=== PATIENT | male | born 1945 | race Caucasian/White ===

== ENCOUNTER 2020-12-19 11:41 | Inpatient (IN) ==
[2020-12-19] MEDS ORDERED: Ipratropium/Albuterol Neb 3 ML IH ONE (12:08)
[2020-12-19 12:22] LABS: Eosinophils # 0.2 K/mcL (0.0-0.6); Eosinophils % 2.4 %; Hematocrit 44.9 % (37.5-50.1); Hemoglobin 14.8 g/dL (12.9-16.9); Immature Granulocytes % 0.3 % (0-4); Lymphocytes # 0.6 K/mcL (0.6-4.6); Lymphocytes % 7.2 %; Mean Corpuscular Hemoglobin 29.3 pg (28.0-33.3); Mean Corpuscular Volume 88.9 fL (83.0-100.0); Mean Platelet Volume 11.1 fL (9.4-12.4); Monocytes # 0.7 K/mcL (0.0-1.3); Neutrophils # 6.5 K/mcL (1.6-8.9); Platelet Count 100 K/mcL (140-400); Red Blood Count 5.05 M/mcL (4.19-5.50); Red Cell Distribution Width 13.3 % (11.5-14.5); Segmented Neutrophils % 81.1 %
[2020-12-19 12:30] LABS: INR 1.1; Prothrombin Time 12.4 Seconds (9.4-12.1)
[2020-12-19 12:40] LABS: Albumin 3.9 g/dL (3.5-5.7); Bilirubin,Total 1.2 mg/dL (0.3-1.0); Globulin 3.9 g/dL (2.4-3.5); Phosphorous 2.8 mg/dL (2.7-4.5); Potassium 4.4 mEq/L (3.5-5.1); Total Protein 7.8 g/dL (6.4-8.9); Troponin I 0.03 ng/mL (< 0.04)
[2020-12-19] MEDS ORDERED: Isovue-370 500 ML BOTTLE IVP ONE (12:40)
[2020-12-19] MEDS ORDERED: 0.9 % Sodium Chloride 1,000 ML IV ONE (12:44)
[2020-12-19] MEDS ORDERED: MOM Conc 10 ML UD.LIQ PO PRN (15:57)
[2020-12-19] MEDS ORDERED: Mag Hydrox/Al Hydrox/Simeth 30 ML UDC PO PRN (15:57)
[2020-12-19] MEDS ORDERED: Ondansetron 4 MG/2 ML VIAL IVP PRN (15:57)
[2020-12-19] MEDS ORDERED: Melatonin 3 MG TABLET PO PRN (15:57)
[2020-12-19] MEDS ORDERED: Acetaminophen 325 MG TABLET PO PRN (15:57)
[2020-12-19] MEDS ORDERED: Ondansetron ODT 4 MG TAB.RAPDIS SL PRN (15:57)
[2020-12-19] MEDS ORDERED: Naloxone 0.4 MG/ML INJ IVP PRN (15:57)
[2020-12-19] MEDS ORDERED: Furosemide 40 MG/4 ML VIAL IVP ONE (16:03)
[2020-12-19] MEDS ORDERED: methylPREDNISolone 125 MG/2 ML VIAL IVP ONE (16:06)
[2020-12-19] MEDS ORDERED: Perflutren Lipid Microsphere 1.3 ML in 0.9 % Sodium Chloride 8.7 ML IVP PRN ×2 (16:10→17:38)
[2020-12-19] MEDS ORDERED: Ipratropium/Albuterol Neb 3 ML ONE (16:17)
[2020-12-19] MEDS: Ipratropium/Albuterol Neb 3 ML IH SCH ×2 (16:20→21:42)
[2020-12-19] MEDS: cefTRIAXone 1,000 MG in Water for inj. (sterile) 10 ML IVP SCH (17:56)
[2020-12-19] MEDS: Azithromycin 500 MG in 0.9 % Sodium Chloride 250 ML IVPB SCH (17:59)
[2020-12-19 20:31] LABS: Bilirubin,Urine Negative (Negative); Blood,Urine Negative (Negative); Clarity,Urine Slightly Cloudy (Clear); Glucose,Urine (UA) Normal (Normal); Ketones,Urine Negative (Negative); Leukocyte Esterase,Urine Negative (Negative); Nitrite,Urine Negative (Negative); PH,Urine 5.5 pH Units (5.0-8.0); Protein,Urine 30 mg/dL (Neg-Trace); Urobilinogen,Urine Normal (Normal)
[2020-12-19] MEDS: Budesonide/Formoterol 160/4.5 1 PUFF INH IH SCH (21:42)
[2020-12-19] MEDS ORDERED: Ipratropium/Albuterol Neb 3 ML IH SCH (22:00)
[2020-12-19 23:31] LABS: Amorphous Sediment,Urine Few per hpf (None-Few); Color,Urine Yellow (Yellow)
[2020-12-20] MEDS: MethylPREDNISolone 40 MG/ML VIAL IVP SCH ×3 (00:58→15:29)
[2020-12-20] MEDS: Ipratropium/Albuterol Neb 3 ML IH SCH ×4 (03:47→22:13)
[2020-12-20 04:59] LABS: Hematocrit 38.1 % (37.5-50.1); Immature Granulocytes % 0.3 % (0-4); Lymphocytes # 0.4 K/mcL (0.6-4.6); Lymphocytes % 10.5 %; Mean Corpuscular HGB Conc 33.3 g/dL (31.6-35.5); Mean Corpuscular Hemoglobin 29.2 pg (28.0-33.3); Mean Corpuscular Volume 87.6 fL (83.0-100.0); Mean Platelet Volume 11.7 fL (9.4-12.4); Monocytes # 0.1 K/mcL (0.0-1.3); Monocytes % 1.8 %; Neutrophils # 2.9 K/mcL (1.6-8.9); Red Blood Count 4.35 M/mcL (4.19-5.50); Red Cell Distribution Width 13.1 % (11.5-14.5); Segmented Neutrophils % 87.4 %; White Blood Count 3.3 K/mcL (4.3-11.1)
[2020-12-20 05:06] LABS: Hemoglobin 12.7 g/dL (12.9-16.9); Platelet Count 69 K/mcL (140-400)
[2020-12-20 05:16] LABS: Albumin 3.3 g/dL (3.5-5.7); Albumin/Globulin Ratio 1.1 (1.1-2.2); Bilirubin,Total 0.5 mg/dL (0.3-1.0); Calcium 8.1 mg/dL (8.6-10.3); Globulin 3.1 g/dL (2.4-3.5); Phosphorous 3.7 mg/dL (2.7-4.5); Total Protein 6.4 g/dL (6.4-8.9)
[2020-12-20] MEDS: *HR* Enoxaparin 40 MG/0.4 ML SYRINGE SQ SCH (07:00)
[2020-12-20] MEDS: Budesonide/Formoterol 160/4.5 1 PUFF INH IH SCH ×2 (08:01→22:13)
[2020-12-20] MEDS ORDERED: NADOLOL 20 MG PO SCH (09:00)
[2020-12-20] MEDS ORDERED: amLODIPine 5 MG TABLET PO SCH (09:00)
[2020-12-20] MEDS: cefTRIAXone 1,000 MG in Water for inj. (sterile) 10 ML IVP SCH (09:13)
[2020-12-20] MEDS ORDERED: Patient Taking Own Medication 1 EACH PO SCH (10:26)
[2020-12-20] MEDS: Azithromycin 500 MG in 0.9 % Sodium Chloride 250 ML IVPB SCH (15:29)
[2020-12-20] MEDS ORDERED: amLODIPine 5 MG TABLET PO ONE (18:04)
[2020-12-20] MEDS ORDERED: cloNIDine HCL 0.1 MG TABLET PO PRN (18:05)
[2020-12-20 19:58] LABS: Adenovirus Not Detected (Not Detect); Bordetella Pertussis Not Detected (Not Detect); Chlamydophila pneumoniae Not Detected (Not Detect); Coronavirus 229E Not Detected (Not Detect); Coronavirus HKU1 Not Detected (Not Detect); Coronavirus NL63 Not Detected (Not Detect); Coronavirus OC43 Not Detected (Not Detect); Human Metapneumovirus Not Detected (Not Detect); Human Rhinovirus/Enterovirus DETECTED (Not Detect); Influenza A Subtype 2009 H1 Not Detected (Not Detect); Influenza B Not Detected (Not Detect); Mycoplasma pneumoniae Not Detected (Not Detect); Parainfluenza Virus 1 Not Detected (Not Detect); Parainfluenza Virus 2 Not Detected (Not Detect); Parainfluenza Virus 3 Not Detected (Not Detect); Parainfluenza Virus 4 Not Detected (Not Detect); Respiratory Syncytial Virus Not Detected (Not Detect); SARS-CoV-2 Not Detected (Not Detect)
[2020-12-21] MEDS: MethylPREDNISolone 40 MG/ML VIAL IVP SCH ×4 (00:13→23:51)
[2020-12-21] MEDS: Ipratropium/Albuterol Neb 3 ML IH SCH ×4 (03:58→21:04)
[2020-12-21] MEDS: *HR* Enoxaparin 40 MG/0.4 ML SYRINGE SQ SCH (07:36)
[2020-12-21] MEDS: amLODIPine 5 MG TABLET PO SCH (09:10)
[2020-12-21] MEDS: cefTRIAXone 1,000 MG in Water for inj. (sterile) 10 ML IVP SCH (09:11)
[2020-12-21] MEDS: NADOLOL 20 MG PO SCH (09:16)
[2020-12-21] MEDS: Budesonide/Formoterol 160/4.5 1 PUFF INH IH SCH ×2 (10:19→18:38)
[2020-12-21 11:21] LABS: Hematocrit 40.5 % (37.5-50.1); Hemoglobin 13.5 g/dL (12.9-16.9); Mean Corpuscular HGB Conc 33.3 g/dL (31.6-35.5); Mean Corpuscular Hemoglobin 29.2 pg (28.0-33.3); Mean Corpuscular Volume 87.7 fL (83.0-100.0); Mean Platelet Volume 11.1 fL (9.4-12.4); Platelet Count 128 K/mcL (140-400); Red Blood Count 4.62 M/mcL (4.19-5.50); Red Cell Distribution Width 13.3 % (11.5-14.5); White Blood Count 12.6 K/mcL (4.3-11.1)
[2020-12-21] MEDS: cloNIDine HCL 0.1 MG TABLET PO SCH ×2 (11:28→16:45)
[2020-12-21 11:37] LABS: Calcium 8.6 mg/dL (8.6-10.3); Magnesium 2.1 mg/dL (1.6-2.6)
[2020-12-21] MEDS: Azithromycin 500 MG in 0.9 % Sodium Chloride 250 ML IVPB SCH (16:45)
[2020-12-22] MEDS: Ipratropium/Albuterol Neb 3 ML IH SCH ×2 (03:30→08:04)
[2020-12-22] MEDS: cloNIDine HCL 0.1 MG TABLET PO SCH (04:27)
[2020-12-22] MEDS: Budesonide/Formoterol 160/4.5 1 PUFF INH IH SCH (08:04)
[2020-12-22 08:57] VITALS: BP 146/70
[2020-12-22] MEDS: MethylPREDNISolone 40 MG/ML VIAL IVP SCH (09:06)
[2020-12-22] MEDS: NADOLOL 20 MG PO SCH (09:07)
[2020-12-22] MEDS: cefTRIAXone 1,000 MG in Water for inj. (sterile) 10 ML IVP SCH (09:07)
[2020-12-22] MEDS: amLODIPine 5 MG TABLET PO SCH (09:07)
[2020-12-22 09:13] LABS: Hemoglobin 12.9 g/dL (12.9-16.9); Mean Corpuscular HGB Conc 33.1 g/dL (31.6-35.5); Mean Corpuscular Hemoglobin 29.1 pg (28.0-33.3); Mean Corpuscular Volume 87.8 fL (83.0-100.0); Mean Platelet Volume 11.4 fL (9.4-12.4); Platelet Count 121 K/mcL (140-400); Red Blood Count 4.44 M/mcL (4.19-5.50); Red Cell Distribution Width 13.2 % (11.5-14.5); White Blood Count 8.5 K/mcL (4.3-11.1)
[2020-12-22 09:29] LABS: Albumin/Globulin Ratio 0.9 (1.1-2.2); Bilirubin,Total 0.4 mg/dL (0.3-1.0); Calcium 8.4 mg/dL (8.6-10.3); Globulin 3.2 g/dL (2.4-3.5); Magnesium 2.1 mg/dL (1.6-2.6); Potassium 4.1 mEq/L (3.5-5.1); Total Protein 6.2 g/dL (6.4-8.9)
[2020-12-22] MEDS ORDERED: Azithromycin 250 MG TABLET PO SCH (17:00)
== END 2020-12-22 13:47 | disposition home health service (06) | DRG 194 ==
LOC: EMEROOGRE 11:41 → INPGRE 11:41
PROVIDERS: ADMIT Family Medicine; ATTEND Family Medicine

== ENCOUNTER 2020-12-29 02:18 | Observation (INO) ==
[2020-12-29] MEDS ORDERED: Furosemide 40 MG/4 ML VIAL IVP ONE (02:31)
[2020-12-29] MEDS ORDERED: Ipratropium/Albuterol Neb 3 ML IH ONE (02:31)
[2020-12-29 03:05] LABS: Basophils % 0.2 %; Eosinophils # 0.1 K/mcL (0.0-0.6); Eosinophils % 0.7 %; Hemoglobin 13.7 g/dL (12.9-16.9); Immature Granulocytes % 3.5 % (0-4); Lymphocytes % 5.2 %; Mean Corpuscular HGB Conc 32.6 g/dL (31.6-35.5); Mean Corpuscular Hemoglobin 29.1 pg (28.0-33.3); Mean Corpuscular Volume 89.2 fL (83.0-100.0); Mean Platelet Volume 9.5 fL (9.4-12.4); Monocytes # 1.2 K/mcL (0.0-1.3); Monocytes % 6.3 %; Neutrophils # 16.1 K/mcL (1.6-8.9); Red Blood Count 4.71 M/mcL (4.19-5.50); Red Cell Distribution Width 13.9 % (11.5-14.5); Segmented Neutrophils % 84.1 %; White Blood Count 19.1 K/mcL (4.3-11.1)
[2020-12-29 03:08] LABS: Platelet Count 90 K/mcL (140-400)
[2020-12-29] MEDS ORDERED: Morphine Sulfate 2 MG/ML SYRINGE IVP ONE (03:13)
[2020-12-29] MEDS ORDERED: Ondansetron 4 MG/2 ML VIAL IVP ONE (03:14)
[2020-12-29 03:25] LABS: Troponin I 0.03 ng/mL (< 0.04)
[2020-12-29 04:00] LABS: Calcium 8.3 mg/dL (8.6-10.3); Potassium 4.5 mEq/L (3.5-5.1)
[2020-12-29] MEDS ORDERED: Ondansetron ODT 4 MG TAB.RAPDIS SL PRN (05:10)
[2020-12-29] MEDS ORDERED: *HR* Promethazine 25 MG/ML VIAL IM PRN (05:10)
[2020-12-29] MEDS ORDERED: Naloxone 0.4 MG/ML INJ IVP PRN (05:10)
[2020-12-29] MEDS ORDERED: 0.9 % Sodium Chloride 1,000 ML IVC SCH (05:10)
[2020-12-29] MEDS ORDERED: Furosemide 40 MG/4 ML VIAL ONE (07:14)
[2020-12-29 07:36] LABS: Basophils # 0.1 K/mcL (0.0-0.2); Basophils % 0.2 %; Eosinophils # 0.3 K/mcL (0.0-0.6); Hematocrit 45.5 % (37.5-50.1); Hemoglobin 14.6 g/dL (12.9-16.9); Lymphocytes # 2.1 K/mcL (0.6-4.6); Lymphocytes % 7.9 %; Mean Corpuscular HGB Conc 32.1 g/dL (31.6-35.5); Mean Corpuscular Hemoglobin 29.4 pg (28.0-33.3); Mean Corpuscular Volume 91.5 fL (83.0-100.0); Mean Platelet Volume 10.5 fL (9.4-12.4); Monocytes % 7.4 %; Platelet Count 134 K/mcL (140-400); Red Blood Count 4.97 M/mcL (4.19-5.50); Red Cell Distribution Width 14.1 % (11.5-14.5); Segmented Neutrophils % 79.5 %; White Blood Count 26.2 K/mcL (4.3-11.1)
[2020-12-29 07:39] LABS: Monocytes # 1.9 K/mcL (0.0-1.3); Neutrophils # 20.8 K/mcL (1.6-8.9)
[2020-12-29 07:42] LABS: Bilirubin,Urine Negative (Negative); Blood,Urine Trace-intact (Negative); Clarity,Urine Clear (Clear); Color,Urine Yellow (Yellow); Glucose,Urine (UA) Normal (Normal); Ketones,Urine Negative (Negative); Leukocyte Esterase,Urine Negative (Negative); Nitrite,Urine Negative (Negative); Protein,Urine Negative (Neg-Trace); Specific Gravity,Urine 1.015 (1.010-1.025); Urobilinogen,Urine Normal (Normal)
[2020-12-29 07:43] LABS: ABG Base Excess -8 mEq/L (-2 to 3); ABG HCO3 19 mEq/L (21-27); ABG Oxygen Saturation 100 % (95-98); ABG PCO2 41 mmHg (35-45); ABG PH 7.27 pH Units (7.32-7.45); ABG PO2 200 mmHg (85-104); ABG TCO2 20 mEq/L (20-26)
[2020-12-29 07:43] LABS: RBC,Urine 0-3 per hpf (0-3); WBC,Urine 0-3 per hpf (0-3)
[2020-12-29 07:49] LABS: Albumin 3.6 g/dL (3.5-5.7); Albumin/Globulin Ratio 1.2 (1.1-2.2); Bilirubin,Total 0.7 mg/dL (0.3-1.0); Calcium 8.4 mg/dL (8.6-10.3); Potassium 4.5 mEq/L (3.5-5.1); Total Protein 6.6 g/dL (6.4-8.9)
[2020-12-29 07:53] LABS: Troponin I 0.04 ng/mL (< 0.04)
[2020-12-29] MEDS ORDERED: Furosemide 100 MG/10 ML VIAL IVP ONE (08:15)
[2020-12-29] MEDS ORDERED: NADOLOL 20 MG PO SCH (09:00)
[2020-12-29] MEDS ORDERED: Cefdinir 300 MG CAPSULE PO SCH (09:00)
[2020-12-29] MEDS ORDERED: 0.9 % Sodium Chloride 500 ML IVC ONE (09:16)
[2020-12-29] MEDS: 0.9 % Sodium Chloride 1,000 ML IVC SCH ×2 (09:19→18:07)
[2020-12-29] MEDS: Budesonide/Formoterol 160/4.5 1 PUFF INH IH SCH ×2 (09:51→19:05)
[2020-12-29] MEDS: lisinopriL 5 MG TABLET PO SCH (10:30)
[2020-12-29] MEDS: amLODIPine 5 MG TABLET PO SCH (10:30)
[2020-12-29] MEDS ORDERED: Mag Hydrox/Al Hydrox/Simeth 30 ML UDC PO PRN (11:45)
[2020-12-29] MEDS ORDERED: Famotidine 20 MG/2 ML VIAL IVP ONE (11:45)
[2020-12-29] MEDS: Azithromycin 250 MG TABLET PO SCH (13:01)
[2020-12-29] MEDS: MethylPREDNISolone 40 MG/ML VIAL IVP SCH ×3 (13:02→23:40)
[2020-12-29] MEDS: Ipratropium/Albuterol Neb 3 ML IH SCH ×3 (16:11→23:00)
[2020-12-29] MEDS: Cefepime HCl 1,000 MG in 0.9 % Sodium Chloride Mini Bag 100 ML IVPB SCH (16:46)
[2020-12-30] MEDS: Ipratropium/Albuterol Neb 3 ML IH SCH ×6 (03:13→23:11)
[2020-12-30] MEDS: Cefepime HCl 1,000 MG in 0.9 % Sodium Chloride Mini Bag 100 ML IVPB SCH (04:54)
[2020-12-30 05:14] LABS: Basophils % 0.1 %; Hematocrit 35.1 % (37.5-50.1); Hemoglobin 11.8 g/dL (12.9-16.9); Immature Granulocytes % 0.6 % (0-4); Lymphocytes # 0.4 K/mcL (0.6-4.6); Lymphocytes % 3.4 %; Mean Corpuscular HGB Conc 33.6 g/dL (31.6-35.5); Mean Corpuscular Hemoglobin 29.5 pg (28.0-33.3); Mean Corpuscular Volume 87.8 fL (83.0-100.0); Mean Platelet Volume 10.7 fL (9.4-12.4); Monocytes # 0.2 K/mcL (0.0-1.3); Neutrophils # 9.6 K/mcL (1.6-8.9); Red Cell Distribution Width 13.7 % (11.5-14.5); Segmented Neutrophils % 93.9 %; White Blood Count 10.2 K/mcL (4.3-11.1)
[2020-12-30 05:21] LABS: Platelet Count 53 K/mcL (140-400)
[2020-12-30 05:29] LABS: Platelet Estimate Decreased (Normal)
[2020-12-30] MEDS ORDERED: *HR* Enoxaparin 40 MG/0.4 ML SYRINGE SQ SCH (06:00)
[2020-12-30] MEDS: MethylPREDNISolone 40 MG/ML VIAL IVP SCH ×3 (08:44→23:05)
[2020-12-30] MEDS: amLODIPine 5 MG TABLET PO SCH (08:44)
[2020-12-30] MEDS: Azithromycin 250 MG TABLET PO SCH (08:44)
[2020-12-30] MEDS: lisinopriL 5 MG TABLET PO SCH (08:44)
[2020-12-30] MEDS: Budesonide/Formoterol 160/4.5 1 PUFF INH IH SCH ×2 (09:38→19:34)
[2020-12-30] MEDS ORDERED: Cefepime HCl 1,000 MG in 0.9 % Sodium Chloride Mini Bag 100 ML IVPB SCH (16:00)
[2020-12-30 20:08] LABS: Calcium 7.5 mg/dL (8.6-10.3); Magnesium 1.9 mg/dL (1.6-2.6); Potassium 4.3 mEq/L (3.5-5.1)
[2020-12-31] MEDS: Ipratropium/Albuterol Neb 3 ML IH SCH ×3 (03:10→12:48)
[2020-12-31 06:00] LABS: Hematocrit 36.1 % (37.5-50.1); Mean Corpuscular HGB Conc 33.2 g/dL (31.6-35.5); Mean Corpuscular Hemoglobin 29.5 pg (28.0-33.3); Mean Corpuscular Volume 88.7 fL (83.0-100.0); Mean Platelet Volume 11.5 fL (9.4-12.4); Red Blood Count 4.07 M/mcL (4.19-5.50); Red Cell Distribution Width 13.8 % (11.5-14.5); White Blood Count 9.1 K/mcL (4.3-11.1)
[2020-12-31 06:01] LABS: Platelet Count 52 K/mcL (140-400)
[2020-12-31 06:18] LABS: Calcium 8.1 mg/dL (8.6-10.3); Magnesium 2.1 mg/dL (1.6-2.6); Potassium 4.7 mEq/L (3.5-5.1)
[2020-12-31] MEDS: Budesonide/Formoterol 160/4.5 1 PUFF INH IH SCH (08:13)
[2020-12-31] MEDS: lisinopriL 5 MG TABLET PO SCH (09:21)
[2020-12-31] MEDS: amLODIPine 5 MG TABLET PO SCH (09:21)
[2020-12-31] MEDS: MethylPREDNISolone 40 MG/ML VIAL IVP SCH (09:21)
[2020-12-31 11:53] VITALS: BP 136/76
== END 2020-12-31 12:48 | disposition home or self-care (01) ==
LOC: EMEROOGRE 02:18 → INTOOBSV 04:44 → INPGRE 04:44
PROVIDERS: ADMIT Family Medicine; ATTEND Family Medicine

== ENCOUNTER 2021-05-23 13:19 | Inpatient (IN) ==
[2021-05-23 14:01] LABS: Basophils % 0.1 %; Eosinophils # 0.3 K/mcL (0.0-0.6); Eosinophils % 2.4 %; Hematocrit 43.5 % (37.5-50.1); Hemoglobin 14.1 g/dL (12.9-16.9); Immature Granulocytes % 0.6 % (0-4); Lymphocytes # 0.4 K/mcL (0.6-4.6); Lymphocytes % 3.5 %; Mean Corpuscular HGB Conc 32.4 g/dL (31.6-35.5); Mean Corpuscular Hemoglobin 29.6 pg (28.0-33.3); Mean Corpuscular Volume 91.4 fL (83.0-100.0); Mean Platelet Volume 12.1 fL (9.4-12.4); Monocytes # 1.1 K/mcL (0.0-1.3); Monocytes % 10.1 %; Neutrophils # 8.7 K/mcL (1.6-8.9); Red Blood Count 4.76 M/mcL (4.19-5.50); Red Cell Distribution Width 13.7 % (11.5-14.5); Segmented Neutrophils % 83.3 %; White Blood Count 10.4 K/mcL (4.3-11.1)
[2021-05-23 14:05] LABS: INR 1.2; Prothrombin Time 13.1 Seconds (9.4-12.1)
[2021-05-23 14:07] LABS: Activated Partial Thrombo Time 30.5 Seconds (26.0-36.0)
[2021-05-23 14:09] LABS: D-Dimer 3190 ng/mLFEU (0-500)
[2021-05-23 14:10] LABS: Heparin anti-factor XA UFH < 0.04 IU/mL (0.30-0.70)
[2021-05-23 14:11] LABS: Platelet Count 76 K/mcL (140-400)
[2021-05-23 14:14] LABS: Albumin 3.2 g/dL (3.5-5.7); Albumin/Globulin Ratio 1.3 (1.1-2.2); Bilirubin,Total 1.2 mg/dL (0.3-1.0); Calcium 7.8 mg/dL (8.6-10.3); Globulin 2.5 g/dL (2.4-3.5); Magnesium 1.8 mg/dL (1.6-2.6); Phosphorous 2.2 mg/dL (2.7-4.5); Potassium 3.3 mEq/L (3.5-5.1); Total Protein 5.7 g/dL (6.4-8.9)
[2021-05-23] MEDS ORDERED: 0.9 % Sodium Chloride 1,000 ML IV ONE (15:20)
[2021-05-23] MEDS ORDERED: Isovue-370 500 ML BOTTLE IVP ONE (15:21)
[2021-05-23] MEDS ORDERED: Ondansetron ODT 4 MG TAB.RAPDIS SL PRN (17:23)
[2021-05-23] MEDS ORDERED: Ondansetron 4 MG/2 ML VIAL IVP PRN (17:23)
[2021-05-23] MEDS ORDERED: MOM Conc 10 ML UD.LIQ PO PRN (17:23)
[2021-05-23] MEDS ORDERED: Naloxone 0.4 MG/ML INJ IVP PRN (17:23)
[2021-05-23] MEDS ORDERED: NON-FORMULARY MEDICATION 1 EACH EACH (Ipratropium/Albuterol Sulfate 120 PUFF Inhaler) IH PRN (17:28)
[2021-05-23] MEDS: Budesonide/Formoterol 160/4.5 1 PUFF INH IH SCH (20:03)
[2021-05-23] MEDS ORDERED: Melatonin 3 MG TABLET PO PRN (21:00)
[2021-05-23] MEDS ORDERED: Ipratropium 1 PUFF INHALER IH PRN (21:14)
[2021-05-23] MEDS: Mag Hydrox/Al Hydrox/Simeth 30 ML UDC PO PRN (22:19)
[2021-05-24 03:54] LABS: Basophils % 0.1 %; Eosinophils # 0.2 K/mcL (0.0-0.6); Eosinophils % 2.3 %; Hematocrit 36.3 % (37.5-50.1); Immature Granulocytes % 0.4 % (0-4); Lymphocytes # 0.3 K/mcL (0.6-4.6); Lymphocytes % 3.6 %; Mean Corpuscular HGB Conc 33.1 g/dL (31.6-35.5); Mean Corpuscular Hemoglobin 29.6 pg (28.0-33.3); Mean Corpuscular Volume 89.4 fL (83.0-100.0); Mean Platelet Volume 11.6 fL (9.4-12.4); Monocytes # 0.7 K/mcL (0.0-1.3); Monocytes % 9.7 %; Neutrophils # 5.8 K/mcL (1.6-8.9); Red Blood Count 4.06 M/mcL (4.19-5.50); Red Cell Distribution Width 13.6 % (11.5-14.5); Segmented Neutrophils % 83.9 %; White Blood Count 6.9 K/mcL (4.3-11.1)
[2021-05-24 04:04] LABS: Platelet Count 40 K/mcL (140-400)
[2021-05-24 04:07] LABS: Platelet Estimate Decreased (Normal)
[2021-05-24 04:13] LABS: Albumin 2.7 g/dL (3.5-5.7); Albumin/Globulin Ratio 1.3 (1.1-2.2); Bilirubin,Total 0.9 mg/dL (0.3-1.0); Calcium 7.3 mg/dL (8.6-10.3); Globulin 2.1 g/dL (2.4-3.5); Magnesium 1.6 mg/dL (1.6-2.6); Phosphorous 1.8 mg/dL (2.7-4.5); Total Protein 4.8 g/dL (6.4-8.9); Troponin I 0.05 ng/mL (< 0.04)
[2021-05-24] MEDS: lisinopriL 5 MG TABLET PO SCH (08:53)
[2021-05-24] MEDS: amLODIPine 5 MG TABLET PO SCH (08:53)
[2021-05-24] MEDS: cefTRIAXone 1,000 MG in Water for inj. (sterile) 10 ML IVP SCH (08:54)
[2021-05-24] MEDS: NADOLOL 20 MG PO SCH (08:59)
[2021-05-24] MEDS: Acetaminophen 325 MG TABLET PO PRN ×2 (08:59→20:28)
[2021-05-24] MEDS ORDERED: Ipratropium/Albuterol Neb 3 ML IH PRN (09:03)
[2021-05-24] MEDS: Budesonide/Formoterol 160/4.5 1 PUFF INH IH SCH ×2 (09:52→20:32)
[2021-05-24 20:57] LABS: Adenovirus Not Detected (Not Detect); Bordetella Pertussis Not Detected (Not Detect); Chlamydophila pneumoniae Not Detected (Not Detect); Coronavirus 229E Not Detected (Not Detect); Coronavirus HKU1 Not Detected (Not Detect); Coronavirus NL63 Not Detected (Not Detect); Coronavirus OC43 Not Detected (Not Detect); Human Metapneumovirus Not Detected (Not Detect); Human Rhinovirus/Enterovirus Not Detected (Not Detect); Influenza A Subtype 2009 H1 Not Detected (Not Detect); Influenza B Not Detected (Not Detect); Mycoplasma pneumoniae Not Detected (Not Detect); Parainfluenza Virus 1 Not Detected (Not Detect); Parainfluenza Virus 2 Not Detected (Not Detect); Parainfluenza Virus 3 Not Detected (Not Detect); Parainfluenza Virus 4 Not Detected (Not Detect); Respiratory Syncytial Virus Not Detected (Not Detect); SARS-CoV-2 Not Detected (Not Detect)
[2021-05-24 22:24] LABS: Bilirubin,Urine Negative (Negative); Blood,Urine Trace-lysed (Negative); Clarity,Urine Clear (Clear); Color,Urine Yellow (Yellow); Glucose,Urine (UA) Normal (Normal); Ketones,Urine Negative (Negative); Leukocyte Esterase,Urine Negative (Negative); Nitrite,Urine Negative (Negative); PH,Urine 5.5 pH Units (5.0-8.0); Protein,Urine 100 mg/dL (Neg-Trace); Specific Gravity,Urine 1.025 (1.010-1.025); Urobilinogen,Urine Normal (Normal)
[2021-05-24 22:52] LABS: Bacteria,Urine Few per hpf (None-Few); Hyaline Casts,Urine Few per lpf (None Seen); RBC,Urine 0-3 per hpf (0-3); Squamous Epithelial Cell,Urine Few per hpf (None-Few); Transitional Epi Cells,Urine Few per hpf (None-Few)
[2021-05-25] MEDS: Acetaminophen 325 MG TABLET PO PRN (04:36)
[2021-05-25 06:03] LABS: Hematocrit 34.6 % (37.5-50.1); Hemoglobin 11.7 g/dL (12.9-16.9); Mean Corpuscular HGB Conc 33.8 g/dL (31.6-35.5); Mean Corpuscular Hemoglobin 29.7 pg (28.0-33.3); Mean Corpuscular Volume 87.8 fL (83.0-100.0); Mean Platelet Volume 13.2 fL (9.4-12.4); Red Blood Count 3.94 M/mcL (4.19-5.50); Red Cell Distribution Width 13.5 % (11.5-14.5); White Blood Count 7.6 K/mcL (4.3-11.1)
[2021-05-25 06:19] LABS: Calcium 7.2 mg/dL (8.6-10.3); Magnesium 1.6 mg/dL (1.6-2.6); Phosphorous 2.1 mg/dL (2.7-4.5); Potassium 3.9 mEq/L (3.5-5.1)
[2021-05-25] MEDS: NADOLOL 20 MG PO SCH (08:29)
[2021-05-25] MEDS: cefTRIAXone 1,000 MG in Water for inj. (sterile) 10 ML IVP SCH (08:30)
[2021-05-25] MEDS: lisinopriL 5 MG TABLET PO SCH (08:30)
[2021-05-25] MEDS: amLODIPine 5 MG TABLET PO SCH (08:30)
[2021-05-25 08:32] LABS: Platelet Count 33 K/mcL (140-400)
[2021-05-25] MEDS: Budesonide/Formoterol 160/4.5 1 PUFF INH IH SCH ×2 (10:45→20:43)
[2021-05-25] MEDS ORDERED: Calcium Chloride 1,000 MG in 0.9 % Sodium Chloride 100 ML IVPB ONE (14:02)
[2021-05-25] MEDS ORDERED: Calcium Gluconate 1gm/50mL 1 GM/50 ML BAG IVPB ONE (14:06)
[2021-05-25] MEDS ORDERED: 0.9 % Sodium Chloride 1,000 ML IVC SCH (14:15)
[2021-05-25] MEDS ORDERED: Azithromycin 500 MG in 0.9 % Sodium Chloride 250 ML IVPB SCH (15:00)
[2021-05-25 22:22] LABS: Calcium 7.3 mg/dL (8.6-10.3); Magnesium 1.6 mg/dL (1.6-2.6); Phosphorous 2.3 mg/dL (2.7-4.5); Potassium 3.8 mEq/L (3.5-5.1)
[2021-05-26 05:58] LABS: Basophils % 0.1 %; Eosinophils # 0.3 K/mcL (0.0-0.6); Eosinophils % 3.6 %; Hematocrit 34.6 % (37.5-50.1); Hemoglobin 11.5 g/dL (12.9-16.9); Immature Granulocytes % 0.6 % (0-4); Lymphocytes # 0.4 K/mcL (0.6-4.6); Lymphocytes % 5.5 %; Mean Corpuscular HGB Conc 33.2 g/dL (31.6-35.5); Mean Corpuscular Hemoglobin 29.3 pg (28.0-33.3); Mean Platelet Volume 13.7 fL (9.4-12.4); Monocytes # 0.8 K/mcL (0.0-1.3); Monocytes % 11.7 %; Neutrophils # 5.5 K/mcL (1.6-8.9); Red Blood Count 3.93 M/mcL (4.19-5.50); Red Cell Distribution Width 13.6 % (11.5-14.5); Segmented Neutrophils % 78.5 %; White Blood Count 6.9 K/mcL (4.3-11.1)
[2021-05-26 06:17] LABS: Calcium 7.2 mg/dL (8.6-10.3)
[2021-05-26 06:44] LABS: Platelet Count 29 K/mcL (140-400)
[2021-05-26] MEDS: lisinopriL 5 MG TABLET PO SCH (09:38)
[2021-05-26] MEDS: cefTRIAXone 1,000 MG in Water for inj. (sterile) 10 ML IVP SCH (09:39)
[2021-05-26] MEDS: amLODIPine 5 MG TABLET PO SCH (09:39)
[2021-05-26] MEDS: NADOLOL 20 MG PO SCH (09:40)
[2021-05-26 09:49] LABS: Calcium 7.4 mg/dL (8.6-10.3); Potassium 3.8 mEq/L (3.5-5.1)
[2021-05-26] MEDS: Budesonide/Formoterol 160/4.5 1 PUFF INH IH SCH ×2 (10:30→19:59)
[2021-05-26] MEDS: Ipratropium/Albuterol Neb 3 ML IH SCH ×3 (11:44→19:58)
[2021-05-26 14:58] LABS: Basophils % 0.1 %; Eosinophils # 0.2 K/mcL (0.0-0.6); Eosinophils % 2.7 %; Hemoglobin 12.4 g/dL (12.9-16.9); Immature Granulocytes % 0.5 % (0-4); Lymphocytes # 0.3 K/mcL (0.6-4.6); Lymphocytes % 3.8 %; Mean Corpuscular HGB Conc 34.4 g/dL (31.6-35.5); Mean Corpuscular Hemoglobin 30.2 pg (28.0-33.3); Mean Corpuscular Volume 87.6 fL (83.0-100.0); Mean Platelet Volume 13.2 fL (9.4-12.4); Monocytes # 0.8 K/mcL (0.0-1.3); Monocytes % 9.6 %; Neutrophils # 6.6 K/mcL (1.6-8.9); Red Blood Count 4.11 M/mcL (4.19-5.50); Red Cell Distribution Width 13.6 % (11.5-14.5); Segmented Neutrophils % 83.3 %; White Blood Count 7.9 K/mcL (4.3-11.1)
[2021-05-26 15:00] LABS: Platelet Count 25 K/mcL (140-400)
[2021-05-26 15:17] LABS: Calcium 7.4 mg/dL (8.6-10.3); Potassium 3.9 mEq/L (3.5-5.1)
[2021-05-27] MEDS: Ipratropium/Albuterol Neb 3 ML IH SCH ×4 (00:01→11:32)
[2021-05-27] MEDS: Mag Hydrox/Al Hydrox/Simeth 30 ML UDC PO PRN (00:51)
[2021-05-27 06:07] LABS: Basophils % 0.1 %; Eosinophils # 0.3 K/mcL (0.0-0.6); Eosinophils % 4.4 %; Hematocrit 35.1 % (37.5-50.1); Hemoglobin 11.8 g/dL (12.9-16.9); Immature Granulocytes % 0.4 % (0-4); Lymphocytes # 0.4 K/mcL (0.6-4.6); Lymphocytes % 5.6 %; Mean Corpuscular HGB Conc 33.6 g/dL (31.6-35.5); Mean Corpuscular Hemoglobin 29.4 pg (28.0-33.3); Mean Corpuscular Volume 87.5 fL (83.0-100.0); Monocytes # 0.7 K/mcL (0.0-1.3); Monocytes % 9.4 %; Red Blood Count 4.01 M/mcL (4.19-5.50); Red Cell Distribution Width 13.6 % (11.5-14.5); Segmented Neutrophils % 80.1 %; White Blood Count 7.5 K/mcL (4.3-11.1)
[2021-05-27 06:39] LABS: Platelet Count 29 K/mcL (140-400)
[2021-05-27 06:44] LABS: Albumin 2.5 g/dL (3.5-5.7); Albumin/Globulin Ratio 1.1 (1.1-2.2); Bilirubin,Total 0.6 mg/dL (0.3-1.0); Calcium 7.4 mg/dL (8.6-10.3); Globulin 2.2 g/dL (2.4-3.5); Potassium 3.8 mEq/L (3.5-5.1); Total Protein 4.7 g/dL (6.4-8.9)
[2021-05-27 07:25] LABS: INR 1.1; Prothrombin Time 12.8 Seconds (9.4-12.1)
[2021-05-27 07:33] LABS: Activated Partial Thrombo Time 31.5 Seconds (26.0-36.0)
[2021-05-27] MEDS: amLODIPine 5 MG TABLET PO SCH (08:27)
[2021-05-27] MEDS: cefTRIAXone 1,000 MG in Water for inj. (sterile) 10 ML IVP SCH (08:28)
[2021-05-27] MEDS: Budesonide/Formoterol 160/4.5 1 PUFF INH IH SCH (08:50)
[2021-05-27 11:44] VITALS: BP 121/79; PULSE 82; RESP 20; TEMP 97.5; O2SAT 91
[2021-05-27] MEDS: lisinopriL 5 MG TABLET PO SCH (13:45)
== END 2021-05-27 14:30 | disposition short-term general hospital (02) | DRG 193 ==
LOC: EMEROOGRE 13:19 → INPGRE 13:19
PROVIDERS: ADMIT Family Medicine; ATTEND Family Medicine

== ENCOUNTER 2021-06-29 12:23 | Observation (INO) ==
[2021-06-29 13:35] LABS: Basophils % 0.3 %; Eosinophils # 0.2 K/mcL (0.0-0.6); Eosinophils % 1.8 %; Hematocrit 39.2 % (37.5-50.1); Hemoglobin 12.5 g/dL (12.9-16.9); Immature Granulocytes % 0.7 % (0-4); Lymphocytes # 0.9 K/mcL (0.6-4.6); Lymphocytes % 7.8 %; Mean Corpuscular HGB Conc 31.9 g/dL (31.6-35.5); Mean Corpuscular Hemoglobin 29.5 pg (28.0-33.3); Mean Corpuscular Volume 92.5 fL (83.0-100.0); Mean Platelet Volume 10.7 fL (9.4-12.4); Neutrophils # 9.3 K/mcL (1.6-8.9); Platelet Count 177 K/mcL (140-400); Red Blood Count 4.24 M/mcL (4.19-5.50); Red Cell Distribution Width 15.1 % (11.5-14.5); Segmented Neutrophils % 80.4 %; White Blood Count 11.6 K/mcL (4.3-11.1)
[2021-06-29 13:50] LABS: Bilirubin,Direct 0.3 mg/dL (0.0-0.2); Bilirubin,Indirect 0.9 mg/dL (0.0-1.0); Bilirubin,Total 1.2 mg/dL (0.3-1.0); Calcium 8.1 mg/dL (8.6-10.3); Potassium 3.2 mEq/L (3.5-5.1)
[2021-06-29] MEDS: 0.9 % Sodium Chloride 1,000 ML IVC SCH ×3 (13:51→22:03)
[2021-06-29 13:55] LABS: Troponin I 0.04 ng/mL (< 0.04)
[2021-06-29 14:05] LABS: VBG HCO3 24 mEq/L (21-27); VBG PCO2 49 mmHg (41-51); VBG PH 7.29 pH Units (7.32-7.42); VBG PO2 27 mmHg (25-50)
[2021-06-29 14:57] LABS: INR 1.2; Prothrombin Time 13.2 Seconds (9.4-12.1)
[2021-06-29 15:00] LABS: Activated Partial Thrombo Time 28.3 Seconds (26.0-36.0)
[2021-06-29] MEDS ORDERED: Perflutren Lipid Microsphere 1.3 ML in 0.9 % Sodium Chloride 8.7 ML IVP PRN (15:03)
[2021-06-29] MEDS ORDERED: Acetaminophen 325 MG TABLET PO PRN (17:06)
[2021-06-29] MEDS ORDERED: Ondansetron 4 MG/2 ML VIAL IVP PRN (17:06)
[2021-06-29] MEDS ORDERED: Ondansetron ODT 4 MG TAB.RAPDIS SL PRN (17:06)
[2021-06-29] MEDS ORDERED: MOM Conc 10 ML UD.LIQ PO PRN (17:06)
[2021-06-29] MEDS ORDERED: Naloxone 0.4 MG/ML INJ IVP PRN (17:06)
[2021-06-29] MEDS ORDERED: Ipratropium/Albuterol Neb 3 ML IH PRN (17:11)
[2021-06-29] MEDS ORDERED: VANCOMYCIN HCL 125 MG PO SCH (18:00)
[2021-06-29] MEDS: Budesonide/Formoterol 160/4.5 1 PUFF INH IH SCH (20:59)
[2021-06-29] MEDS ORDERED: Sennosides 8.6 MG TABLET PO SCH (21:00)
[2021-06-29] MEDS: 0.9 % Sodium Chloride w KCl 20 MEQ/1,000 ML MLS IVC SCH (21:53)
[2021-06-29] MEDS: Vancomycin Oral Soln 125 MG/2.5 ML UDC PO SCH (21:57)
[2021-06-29] MEDS: levETIRAcetam 250 MG TABLET PO SCH (21:57)
[2021-06-29] MEDS: Melatonin 3 MG TABLET PO PRN (21:59)
[2021-06-30 06:26] LABS: Basophils % 0.4 %; Eosinophils # 0.2 K/mcL (0.0-0.6); Eosinophils % 4.2 %; Hematocrit 30.3 % (37.5-50.1); Hemoglobin 9.9 g/dL (12.9-16.9); Immature Granulocytes % 0.7 % (0-4); Lymphocytes # 0.8 K/mcL (0.6-4.6); Lymphocytes % 13.8 %; Mean Corpuscular HGB Conc 32.7 g/dL (31.6-35.5); Mean Corpuscular Hemoglobin 29.8 pg (28.0-33.3); Mean Corpuscular Volume 91.3 fL (83.0-100.0); Mean Platelet Volume 11.4 fL (9.4-12.4); Monocytes # 0.8 K/mcL (0.0-1.3); Monocytes % 13.9 %; Neutrophils # 3.7 K/mcL (1.6-8.9); Red Blood Count 3.32 M/mcL (4.19-5.50); White Blood Count 5.5 K/mcL (4.3-11.1)
[2021-06-30] MEDS: *HR* Enoxaparin 40 MG/0.4 ML SYRINGE SQ SCH (06:42)
[2021-06-30] MEDS: Levothyroxine 25 MCG TABLET PO SCH (06:42)
[2021-06-30 07:08] LABS: Albumin 2.5 g/dL (3.5-5.7); Albumin/Globulin Ratio 1.1 (1.1-2.2); Bilirubin,Total 0.8 mg/dL (0.3-1.0); Calcium 7.5 mg/dL (8.6-10.3); Globulin 2.2 g/dL (2.4-3.5); Magnesium 1.7 mg/dL (1.6-2.6); Phosphorous 2.7 mg/dL (2.7-4.5); Potassium 3.4 mEq/L (3.5-5.1); Total Protein 4.7 g/dL (6.4-8.9)
[2021-06-30 07:29] LABS: Platelet Count 98 K/mcL (140-400)
[2021-06-30] MEDS: levETIRAcetam 250 MG TABLET PO SCH ×2 (09:00→21:27)
[2021-06-30] MEDS: Aspirin 81 MG TAB.CHEW PO SCH (09:00)
[2021-06-30] MEDS: 0.9 % Sodium Chloride w KCl 20 MEQ/1,000 ML MLS IVC SCH (09:01)
[2021-06-30] MEDS: Vancomycin Oral Soln 125 MG/2.5 ML UDC PO SCH ×4 (09:01→21:27)
[2021-06-30] MEDS: amLODIPine 5 MG TABLET PO SCH (09:01)
[2021-06-30] MEDS: lisinopriL 5 MG TABLET PO SCH (09:01)
[2021-06-30] MEDS: Budesonide/Formoterol 160/4.5 1 PUFF INH IH SCH ×2 (09:15→19:51)
[2021-06-30 09:34] LABS: Estimated Average Glucose 97 mg/dl
[2021-06-30] MEDS: Melatonin 3 MG TABLET PO PRN (21:27)
[2021-07-01] MEDS: Levothyroxine 25 MCG TABLET PO SCH (05:53)
[2021-07-01] MEDS: *HR* Enoxaparin 40 MG/0.4 ML SYRINGE SQ SCH (05:53)
[2021-07-01] MEDS: Budesonide/Formoterol 160/4.5 1 PUFF INH IH SCH (08:31)
[2021-07-01] MEDS: levETIRAcetam 250 MG TABLET PO SCH (09:49)
[2021-07-01] MEDS: Vancomycin Oral Soln 125 MG/2.5 ML UDC PO SCH (09:49)
[2021-07-01] MEDS: Aspirin 81 MG TAB.CHEW PO SCH (09:49)
[2021-07-01] MEDS: amLODIPine 5 MG TABLET PO SCH (09:49)
[2021-07-01] MEDS: lisinopriL 5 MG TABLET PO SCH (09:49)
[2021-07-01 14:12] VITALS: O2SAT 100
[2021-07-01 16:19] VITALS: TEMP 98.2
[2021-07-01 16:20] VITALS: BP 116/80; PULSE 80; RESP 17
== END 2021-07-01 14:43 | disposition home or self-care (01) ==
LOC: SUPCPDRO → EMEROOGRE 12:23 → INPGRE 12:23
PROVIDERS: ADMIT Family Medicine; ATTEND Family Medicine